=== PATIENT | male | born 1970 | race Caucasian/White ===

== ENCOUNTER 2018-04-16 16:33 | Emergency (ER) | payer MEDICAID ==
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
== END 2018-04-16 18:56 | disposition home or self-care (01) ==
LOC: JP.ED 16:33
DX: G44.219 Episodic tension-type headache, not intractable (principal); E03.9 Hypothyroidism, unspecified; Z79.899 Other long term (current) drug therapy
CPT/HCPCS: 36415; 70450; 80053; 84443; 85025; 86140; 99284-25

== ENCOUNTER 2019-02-05 07:30 | Day surgery (SDC) | payer MEDICAID ==
[2019-02-05] MEDS ORDERED: Lactated Ringers 1,000 ML IV SCH (08:15)
[2019-02-05] MEDS ORDERED: Propofol 200 MG/20 ML SDV ONE ×2 (08:26→08:49)
[2019-02-05] MEDS ORDERED: fentaNYL 100 MCG/2 ML SDV ONE (08:26)
[2019-02-05] MEDS ORDERED: Midazolam 1 MG/ML 2 ML SDV ONE (08:26)
--- NOTE | 2019-02-05 12:09 | OR ---
DATE OF PROCEDURE: 02/05/2019 PREOPERATIVE DIAGNOSIS: Colon cancer screening. POSTOPERATIVE DIAGNOSES: Diverticulosis. Two small colon polyps, 20 cm, and transverse colon. PROCEDURE: Colonoscopy to the cecum with biopsy resection of 2 small colon polyps at 20 cm from the anal verge and transverse colon. SURGEON: Lewis Anne MD ANESTHESIA: IV anesthesia with monitored anesthesia care. INDICATION: This 49-year-old white male is referred for a colonoscopy for colon cancer screening. He has never had a colonoscopic exam. I counseled him for the procedure, including risks and alternatives, and he gave his informed consent to proceed. DESCRIPTION OF PROCEDURE: The patient was placed in the left lateral decubitus position. IV anesthesia was administered by the Anesthesia Service. Time-out was held. A rectal exam was performed, which was unremarkable. The flexible video Olympus colonoscope was introduced through his anus, up his rectum and out his colon all the way to the cecum. En route, at 20 cm from the anal verge, we saw a small polyp, which was removed with the biopsy forceps. In the transverse colon, we saw another small polyp, which was removed with the biopsy forceps. Additionally, en route in the left side, we encountered a rare diverticula. Once the cecum was reached, the scope was slowly withdrawn examining the mucosa throughout. No additional mucosal abnormalities were noted. The scope was retroflexed in the rectum with the distal rectum appearing unremarkable. The scope was straightened and removed. He tolerated the procedure well. Lewis Anne MD /[id number] RUTHIE
== END 2019-02-05 10:10 | disposition home or self-care (01) ==
LOC: JP.SDS 07:30
PROVIDERS: ATTEND Surgery
DX: Z12.11 Encounter for screening for malignant neoplasm of colon (principal); D12.3 Benign neoplasm of transverse colon; D12.5 Benign neoplasm of sigmoid colon; K57.30 Diverticulosis of large intestine without perforation or abscess without bleeding; E03.9 Hypothyroidism, unspecified; E78.00 Pure hypercholesterolemia, unspecified
CPT/HCPCS: 45380; 88305; J2250; J2704; J3010

== ENCOUNTER 2022-03-28 06:50 | Day surgery (SDC) | payer MEDICAID ==
[2022-03-28] MEDS ORDERED: Lactated Ringers 1,000 ML IV SCH (07:30)
[2022-03-28] MEDS ORDERED: Propofol 200 MG/20 ML SDV ONE (08:05)
[2022-03-28] MEDS ORDERED: Midazolam 1 MG/ML 2 ML SDV ONE (08:05)
[2022-03-28] MEDS ORDERED: fentaNYL 100 MCG/2 ML SDV ONE (08:05)
== END 2022-03-28 10:28 | disposition home or self-care (01) ==
LOC: JP.SDS 06:50
PROVIDERS: ATTEND Family Medicine
DX: Z12.11 Encounter for screening for malignant neoplasm of colon (principal); K62.1 Rectal polyp; E78.5 Hyperlipidemia, unspecified; Z98.890 Other specified postprocedural states; Z86.010 Personal history of colon polyps
CPT/HCPCS: J2250; J2704; J3010; J7120